=== PATIENT | female | born 1975 | race Caucasian/White ===

== ENCOUNTER 2019-10-15 03:52 | Emergency (ER) | payer BC, OTHER ==
[~2019-10-15] VITALS: Ht 165.1 cm; Wt 95.3 kg
[2019-10-15 04:20] LABS: ABSOLUTE NEUTROPHILS 7.8 thou/uL (1.4-8.2); BASOPHILS 0.5 % (0.0-2.0); EOSINOPHILS 0.7 % (0.0-3.0); HEMATOCRIT 45.8 % (37.0-47.0); HEMOGLOBIN 15.2 gm/dL (12.0-15.0); LYMPHOCYTES 14.2 % (24.0-44.0); MCH 31.1 pg (26.0-34.0); MCHC 33.2 g/dL (28.0-37.0); MCV 93.7 fL (80.0-100.0); MONOCYTES 4.8 % (1.0-8.0); PLATELET COUNT 207 thou/uL (150-400); POLYS 79.8 % (36.0-66.0); RBC 4.89 mil/uL (4.20-5.00); RDW 13.5 % (10.5-14.5); WBC 9.8 thou/uL (4.0-11.0)
[2019-10-15 04:24] LABS: ANION GAP 12 mmol/L (7-16); BUN 11 mg/dL (7-18); CALCIUM 9.3 mg/dL (8.5-10.1); CHLORIDE 107 mmol/L (98-107); CO2 26 mmol/L (21-32); CREATININE 0.8 mg/dL (0.6-1.0); GLUCOSE 117 mg/dL (74-106); POTASSIUM 3.8 mmol/L (3.5-5.1); SODIUM 145 mmol/L (136-145)
[2019-10-15 04:33] LABS: TROPONIN-I <0.06 ng/mL (<0.06)
[2019-10-15 05:14] VITALS: BP 116/61
--- NOTE | 2019-10-15 12:57 | EKG ---
[address] [place] [address] ELECTROCARDIOGRAM REPORT Name: NATASHA RICHARDSON Room #: DEP [facility] COUNTYAmaris#: [id number] Admission: 10/15/19 Attend Phys: Discharge: 10/15/19 Date of : 77 Report #: [id number] THIS REPORT FOR: //name// [facility] ED Test Date: 2019-10-15 Test Time: 03:57:55 Pat Name: NATASHA RICHARDSON Department: Room: Gender: F Licensed Psychologist Manager: JOYCE : 1975 Requested By: Rajesh Mustafa Order Number: [id number] MD: Buddy Knight Measurements Intervals [place] Rate: 74 P: 43 SC: 165 QRS: -1 QRSD: 93 T: 43 QT: 391 QTc: 434 Interpretive Statements Sinus rhythm Cannot rule out inferior infarct, age indeterminate No previous ECG available for comparison Electronically Signed On 10-15-2019 12:57:21 [employer] by Buddy Knight [email or web address] <ELECTRONICALLY SIGNED> By: Buddy Knight MD, FAC 10/15/19 [id number] Buddy Knight MD, FACC /EPI
== END 2019-10-15 05:15 | disposition home or self-care (01) ==
LOC: ER 03:52
PROVIDERS: Emergency Medicine
DX: R07.89 Other chest pain (principal)